=== PATIENT | male | born 1945 | race Caucasian/White ===

== ENCOUNTER 2021-07-11 10:37 | Emergency (ER) | payer MEDICARE ==
[~2021-07-11] VITALS: Ht 188 cm; Wt 81.6 kg
[2021-07-11 11:21] LABS: HEMOGLOBIN 14.1 gm/dl (14.0-17.5); RED BLOOD COUNT 4.56 M/UL (4.20-5.50); WHITE BLOOD COUNT 4.5 K/UL (4.5-11.0)
[2021-07-11 12:17] LABS: BUN/CREATININE RATIO 19 (0-10)
== END 2021-07-11 13:12 | disposition home or self-care (01) ==
LOC: ER1 10:37
PROVIDERS: Physician Assistant
DX: Z23 Encounter for immunization (principal); U07.1 COVID-19; E11.9 Type 2 diabetes mellitus without complications
CPT/HCPCS: 71045; 80053; 82550; 82553; 83874; 84484; 85025; 85652; 86140; 99285; M0243